=== PATIENT | male | born 1965 | race Two or more races ===

== ENCOUNTER 2017-04-13 18:15 | Emergency (ER) | payer OTHER ==
[~2017-04-13] VITALS: Ht 167.6 cm; Wt 72.6 kg
[2017-04-13] MEDS ORDERED: IBUPROFEN600 MG ORAL (19:28)
[2017-04-13 19:35] VITALS: BP 135/87
--- NOTE | 2017-04-13 20:31 | Emergency Room Report ---
History of Present Illness General Chief Complaint: Lower Extremity Injury Source: Patient Present Illness HPI The patient is a 51-year-old male presenting with right foot pain. He states that he was walking up a hill while pushing a trash can and felt a sharp pain to the back of the right foot. Pain is described as a 9/10 dull ache and does not radiate from the back of the right foot. Worse with walking. He denies previous injury to the area. He denies any numbness or tingling. He denies any other symptoms Allergies: Coded Allergies: No Known Allergies (Unverified , 04/13/17) Patient History Past Medical History: see triage record Pertinent Family History: none Reviewed Nursing Documentation: PMH: Agreed, PSxH: Agreed Nursing Documentation-PMH Past Medical History: No Stated History Review of Systems All Other Systems: negative except mentioned in HPI Physical Exam Vital Signs Date Time Temp Pulse Resp B/P (MAP) Pulse Ox O2 Delivery O2 Flow Rate FiO2 04/13/17 18:46 98.1 70 16 169/98 97 Room Air Sp02 EP Interpretation: reviewed, normal General Appearance: no apparent distress, alert, GCS 15, non-toxic Head: normocephalic, atraumatic Eyes: bilateral eye normal inspection, bilateral eye PERRL ENT: hearing grossly normal, normal pharynx, no angioedema, normal voice Neck: full range of motion, supple/symm/no masses Musculoskeletal: back normal, gait/station normal, normal range of motion, no calf tenderness, tender - TTP over the R achilles tendon Neurologic: alert, oriented x3, responsive, motor strength/tone normal, sensory intact, speech normal Psychiatric: judgement/insight normal, memory normal, mood/affect normal, no suicidal/homicidal ideation Skin: normal color, no rash, warm/dry, well hydrated Procedures Splinting Splinting : Consent: Verbal Location: R foot Pre-Made Type: RENA wrap Pre-Proc Neuro Vasc Exam: normal Post-Proc Neuro Vasc Exam: normal Patient Tolerated: Well Complications: None Medical Decision Making PA Attestation Dr. Flor is my supervising physician. Patient management was discussed with my supervising physician Diagnostic Impression: Primary Impression: Achilles tendinitis, right leg ER Course The patient is a 51-year-old male presenting with right foot pain Ddx considered include but not limited to sprain/strain, fracture, contusion, tendon rupture, tendonitis, among others PE: TTP over the R achilles tendon. Bolanos test negative. Full AROM of the ankle. No edema. SILT Xray unremarkable. RENA wrap placed and pt given crutches. RICE instructions and motrin given. ER precautions given Other X-Ray Diagnostic Results Other X-Ray Diagnostic Results : X-Ray ordered: R ankle # of Views/Limited Vs Complete: 3 View Indication: Pain EP Interpretation: Yes Interpretation: no dislocation, no soft tissue swelling, no fractures Impression: No acute disease Interpreting ER Provider: MD KEYSHAWN Pugh Scribe Text I am acting as scribe for my supervising physician. My supervising physician's interpretation of the R ankle xrays are there are no fractures, dislocations or soft tissue swelling. Last Vital Signs Date Time Temp Pulse Resp B/P (MAP) Pulse Ox O2 Delivery O2 Flow Rate FiO2 04/13/17 19:35 64 135/87 04/13/17 18:46 98.1 16 97 Room Air Status: improved Disposition: HOME, SELF-CARE Condition: Improved Scripts Ibuprofen* (MOTRIN*) 600 Mg Tablet 600 MG ORAL Q8H Y for For Pain, #30 TAB 0 Refills Prov: HATTIE PICHARDO 04/13/17 Patient Instructions: Achilles Tendinitis Additional Instructions: I discussed my findings with the patient. All questions and concerns have been answered. Treatment and medication compliance have been addressed. I advised the patient that they need to follow up with PMD in 3-5 days. Return to ED if pain remains or worsens, numbness or tingling occurs, new rash is noticed, fever is noticed, or if needed for any reason. Patient verbalized understanding of discharge instructions. HATTIE PICHARDO Apr 13, 2017 20:31
--- NOTE | 2017-04-15 08:56 | Diagnostic Imaging Report ---
Indication: PAIN Technique: 3 views of the right ankle Comparison: none Findings: No acute fractures. No dislocations. Joint spaces are preserved Impression: Negative This agrees with the preliminary interpretation provided overnight by [facility] teleradiology service.
== END 2017-04-13 19:35 | disposition home or self-care (01) ==
LOC: EMR 18:40
DX: M76.61 Achilles tendinitis, right leg (principal)
CPT/HCPCS: 29540; 99283